=== PATIENT | male | born 1990 | race Caucasian/White ===

== ENCOUNTER 2019-10-04 18:48 | Emergency (ER) | payer OTHER ==
[2019-10-04 18:53] VITALS: BP 112/77; PULSE 87; RESP 16; TEMP 98.4
--- NOTE | 2019-10-04 19:25 | ED ---
Abdominal Pain HPI - General Chief Complaint: Abdominal Pain Stated Complaint: R side pain, Heart racing Time Seen by Provider: 10/04/19 18:54 Source: patient Mode of arrival: ambulatory Limitations: no limitations - History of Present Illness Initial Comments: 29-year-old male patient presents to the emergency department today for evaluation of right upper quadrant abdominal pain. Patient states the pain has been going on since yesterday. Patient states the pain is worsening. States he has drank a lot of coffee today but denies eating. He denies fever or chills. Denies any constipation or diarrhea. Denies any nausea or vomiting. States that he has had this pain in the past but has never been this bad. He denies any injuries to the abdomen or ribs. Denies any shortness of breath or chest pain. States he was experiencing some racing heart but that is improved. States he has had bilateral inguinal hernia repairs but no other abdominal surgeries. - Related Data Allergies Allergy/AdvReac Type Severity Reaction Status Date / Time iodine Allergy Rash/Hives Verified 10/04/19 18:51 Review of Systems ROS Statement: Those systems with pertinent positive or pertinent negative responses have been documented in the HPI. ROS Other: All systems not noted in ROS Statement are negative. Past Medical History Past Medical History: No Reported History History of Any Multi-Drug Resistant Organisms: MRSA Date of last positivie culture/infection: 2008 MDRO Source:: rt knee Past Surgical History: Hernia Repair Past Psychological History: No Psychological Hx Reported Smoking Status: Former smoker Past Alcohol Use History: Occasional Past Drug Use History: Marijuana General Exam Limitations: no limitations General appearance: alert, in no apparent distress, other (This is a well- developed, well-nourished adult male patient who is quite anxious. Vital signs upon presentation are temperature 98.4F, pulse 87, respirations 16, blood pressure 112/77, pulse ox 98% on room air) Eye exam: Present: normal appearance, PERRL, EOMI. Absent: scleral icterus, conjunctival injection, periorbital swelling ENT exam: Present: normal exam, normal oropharynx, mucous membranes moist Respiratory exam: Present: normal lung sounds bilaterally. Absent: respiratory distress, wheezes, rales, rhonchi, stridor Cardiovascular Exam: Present: regular rate, normal rhythm, normal heart sounds. Absent: systolic murmur, diastolic murmur, rubs, gallop, clicks GI/Abdominal exam: Present: soft, tenderness (Right upper quadrant tenderness), normal bowel sounds. Absent: distended, guarding, rebound, rigid Neurological exam: Present: alert, oriented X3, CN II-XII intact Psychiatric exam: Present: normal affect, normal mood Skin exam: Present: warm, dry, intact, normal color. Absent: rash Course Vital Signs 10/04/19 18:49 Temperature 98.4 F Pulse Rate 87 Respiratory 16 Rate Blood Pressure 112/77 O2 Sat by Pulse 98 Oximetry Medical Decision Making - Medical Decision Making 29-year-old male patient presented to the emergency department today for evaluation of right upper quadrant abdominal pain. Immediately upon my entering the room patient stated he was not going to have labs drawn. After discussing history of current illness I did recommend lab testing. Patient again refused to have IV started or blood drawn. I did then offer ultrasound of the right upper quadrant abdomen and urinalysis without a blood draw. Patient refused stating that he just wanted to leave. I asked him if there was anything that I could do to make him stay, he said no that he hates hospitals and wanted to leave. He did sign an AGAINST MEDICAL ADVICE form. I did advise him to return immediately should symptoms change or worsen. He is instructed follow up with his primary care physician. He verbalizes understanding. Disposition Clinical Impression: Abdominal pain Disposition: Left Against Medical Advice Condition: Undetermined Is patient prescribed a controlled substance at d/c from ED?: No Referrals: None,Stated [Primary Care Provider] - 1-2 days Time of Disposition: 19:24
== END 2019-10-04 19:26 | disposition left against medical advice (07) ==
LOC: EC 18:48
DX: R10.11 Right upper quadrant pain (principal); Z53.29 Procedure and treatment not carried out because of patient's decision for other reasons; Z87.891 Personal history of nicotine dependence; Z86.14 Personal history of Methicillin resistant Staphylococcus aureus infection; Z91.041 Radiographic dye allergy status; Z98.890 Other specified postprocedural states; Z87.19 Personal history of other diseases of the digestive system
CPT/HCPCS: 99283